=== PATIENT | female | born 1950 | race Caucasian/White ===

== ENCOUNTER 2016-08-19 10:20 | Outpatient (CLI) | payer MEDICARE, OTHER ==
--- NOTE | 2016-08-24 16:43 | Mammography Report ---
DIGITAL SCREENING MAMMOGRAM: 08/19/2016 CLINICAL INDICATION: A 65-year-old with family history of breast cancer, for screening. COMPARISON: 09/2013, 12/2011, 09/2010, 08/2009, 08/2008, 07/2007. TECHNIQUE: Routine CC and MLO projections were obtained of the breasts. Bilateral laterally exaggera cuco craniocaudal views. FINDINGS: Parenchymal tissue within both breasts is heterogeneously dense, which may lower the sensi tivity of mammography; however, there are no dominant masses, suspicious microcalcifications, or seco ndary signs of malignancy. In comparison to the previous studies, there are no significant changes. ASSESSMENT: NO MAMMOGRAPHIC EVIDENCE OF MALIGNANCY. NO SIGNIFICANT INTERVAL CHANGES. RECOMMENDATION: Screening mammography is recommended annually. BIRADS category 1 - negative. STANDARD QUALIFYING STATEMENTS 1. This examination was reviewed with the aid of Computed-Aided Detection (CAD). 2. A negative or benign imaging report should not delay biopsy if clinically suspicious findings are present. Consider surgical consultation if warranted. More than 5% of cancers are not identified by i maging. 3. Dense breasts may obscure an underlying neoplasm. JOB #: [id number] EXT JOB #:[id number]
== END 2016-08-19 10:21 | disposition home or self-care (01) ==
LOC: DI.S 10:20
PROVIDERS: ATTEND Naturopath
DX: Z12.31 Encounter for screening mammogram for malignant neoplasm of breast (principal); Z80.3 Family history of malignant neoplasm of breast
CPT/HCPCS: 77067

== ENCOUNTER 2017-12-13 11:56 | Outpatient (CLI) | payer MEDICARE, OTHER ==
--- NOTE | 2017-12-13 15:48 | XRAY Report ---
Reason: SWELLING PLANTAR ASPECT OF RIGHT FOOT Procedure Date: 12/13/2017 Accession Number: [id number] / [id number] Procedure: XR - Foot 3 View RT CPT Code: FULL RESULT: EXAM: RIGHT FOOT RADIOGRAPHY EXAM DATE: 12/13/2017 12:08 PM. CLINICAL HISTORY: SWELLING PLANTAR ASPECT OF RIGHT FOOT. COMPARISON: None. TECHNIQUE: 3 views. FINDINGS: Bones: No fractures or bone lesions. No erosive bone findings are seen. Joints: No subluxations. Soft Tissues: No soft tissue swelling. There is minimal calcification about the Achilles tendon. IMPRESSION: Minimal calcific Achilles tendinopathy. Otherwise negative foot. [facility]
== END 2017-12-13 11:57 | disposition home or self-care (01) ==
LOC: DI 11:56
PROVIDERS: ATTEND Physician Assistant
DX: M65.271 Calcific tendinitis, right ankle and foot (principal)